=== PATIENT | female | born 1980 ===

== ENCOUNTER 2018-02-20 16:52 | Emergency (ER) | payer SELFPAY ==
[2018-02-20] MEDS ORDERED: Sodium Chloride 0.9% 1,000 ML IV ONE (17:31)
[2018-02-20] MEDS ORDERED: Sodium Chloride 0.9% 1,000 ML ONE (17:45)
[2018-02-20 17:46] LABS: BASO % 0.3 % (0.0-2.0); EOS # 0.1 K/uL (0.0-0.7); EOS % 0.9 % (0.0-4.0); HEMOGLOBIN 12.9 g/dL (11.0-16.0); LYMPH % 17.6 % (20.0-40.0); MEAN CELL VOLUME 86.2 fL (81.0-99.0); MEAN CORPUSCULAR HEMOGLOBIN 28.9 pg (27.0-31.0); MEAN CORPUSCULAR HGB CONC 33.6 g/dL (33.0-37.0); MEAN PLATELET VOLUME 9.2 fL (7.2-11.7); MONO # 0.5 K/uL (0.0-0.8); MONO % 8.7 % (0.0-10.0); NEUT # 4.2 K/uL (1.8-7.0); NEUT % 72.5 % (50.0-75.0); RBC 4.47 Mil/uL (3.80-5.20); RED CELL DISTRIBUTION WIDTH 14.3 % (11.5-14.5); WHITE BLOOD COUNT 5.8 K/uL (4.8-10.8)
[2018-02-20 17:58] LABS: BLOOD UREA NITROGEN 8 mg/dL (7-17); CALCIUM 9.3 mg/dl (8.6-10.4); GFR NON-AFRICAN AMERICAN > 60; LIPASE 104 U/L (23-300)
[2018-02-20 17:59] LABS: ALB/GLOB RATIO 1.2 (1.0-2.1); ALBUMIN 4.3 g/dL (3.5-5.0); ALT/SGPT 17 U/L (9-52); AST/SGOT 37 U/L (14-36)
--- NOTE | 2018-02-20 18:05 | C.PDOC ---
History Of Present Illness 37 year old female presents to the ED complaining of watery diarrhea and lower abdominal cramping for the last three days. Patient reports she ate breakfast at home prior to the pain starting. Notes she feels like her heart is racing. Reports she a fever on the first day, now resolved. Denies any vomiting, dysuria, chest pain, shortness of breath. Admits to sick contacts at home with multiple people with a viral syndrome except diarrhea. Time Seen by Provider: 02/20/18 17:11 Chief Complaint (Nursing): GI Problem History Per: Patient History/Exam Limitations: no limitations Onset/Duration Of Symptoms: Days Current Symptoms Are (Timing): Still Present Location Of Pain/Discomfort: Suprapubic Associated Symptoms: Fever, Diarrhea. denies: Nausea, Vomiting, Urinary Symptoms Past Medical History Reviewed: Historical Data, Nursing Documentation, Vital Signs Vital Signs: Last Vital Signs Temp 98.7 F 02/20/18 17:06 Pulse 115 H 02/20/18 17:06 Resp 18 02/20/18 17:06 BP 103/73 02/20/18 17:06 Pulse Ox 96 02/20/18 17:06 - Medical History PMH: No Chronic Diseases Surgical History: Appendectomy Family History: States: No Known Family Hx - Social History Hx Alcohol Use: No Hx Substance Use: No - Immunization History Hx Tetanus Toxoid Vaccination: No Hx Influenza Vaccination: No Hx Pneumococcal Vaccination: No Review Of Systems Constitutional: Positive for: Fever Cardiovascular: Negative for: Chest Pain Respiratory: Negative for: Shortness of Breath Gastrointestinal: Positive for: Abdominal Pain, Diarrhea. Negative for: Vomiting Genitourinary: Negative for: Dysuria Physical Exam - Physical Exam Appears: Non-toxic Skin: Warm, Dry Head: Normacephalic Eye(s): bilateral: Normal Inspection Neck: Normal ROM Chest: Symmetrical Cardiovascular: Rhythm Regular Respiratory: Normal Breath Sounds, No Rales, No Rhonchi, No Wheezing Gastrointestinal/Abdominal: Soft, Tenderness (mild lower abdominal tenderness), No Guarding, No Rebound Back: No CVA Tenderness Extremity: Normal ROM Neurological/Psych: Oriented x3, Normal Speech Gait: Steady ED Course And Treatment - Laboratory Results Result Diagrams: 02/20/18 17:43 02/20/18 17:43 ECG: Interpreted By Me, Viewed By Me ECG Rhythm: Sinus Tachycardia Interpretation Of ECG: Normal axis. No acute ST/T wave changes Rate From EC O2 Sat by Pulse Oximetry: 96 (RA) Pulse Ox Interpretation: Normal Progress Note: Urine and blood collected and sent to the lab for analysis. Patient treated with IV fluids. Disposition Counseled Patient/Family Regarding: Studies Performed, Diagnosis, Need For Followup, Rx Given - Disposition Referrals: [facility] [Outside] Disposition: HOME/ ROUTINE Disposition Time: 19:55 Condition: STABLE Additional Instructions: FOLLOW UP WITH YOUR DOCTOR/CLINIC IN 1-2 DAYS USE MEDICATION NEEDED DRINK PLENTY OF CLEAR FLUIDS AND ADVANCE TO BLAND DIET SLOWLY RETURN TO ER IF SYMPTOMS WORSEN Prescriptions: Dicyclomine [Bentyl] 20 mg PO Q6 PRN #12 tab PRN Reason: ABDOMINAL CRAMPING Instructions: Diarrhea and Traveler's Diarrhea, Adult (DC) Forms: [employer] (Lao) Print Language: GREENLANDIC - Clinical Impression Clinical Impression: Diarrhea, Abdominal cramps - Scribe Statement The provider has reviewed the documentation as recorded by the Federicoibtristian Ugarte All medical record entries made by the Shreya were at my direction and personally dictated by me. I have reviewed the chart and agree that the record accurately reflects my personal performance of the history, physical exam, medical decision making, and the department course for this patient. I have also personally directed, reviewed, and agree with the discharge instructions and disposition.
[2018-02-20 18:44] LABS: HCG,QUALITATIVE URINE NEGATIVE (NEGATIVE)
[2018-02-20 18:50] LABS: SQUAMOUS EPITHIAL 2 /hpf (0-5); URINE BACTERIA OCC (<OCC); URINE BILIRUBIN NEGATIVE (NEGATIVE); URINE BLOOD 3+ (NEGATIVE); URINE CLARITY Clear (Clear); URINE COLOR Yellow (YELLOW); URINE GLUCOSE (UA) NORMAL (Normal); URINE LEUKOCYTE ESTERASE NEG Leu/uL (Negative); URINE PROTEIN NEGATIVE (NEGATIVE); URINE UROBILINOGEN NORMAL mg/dL (0.2-1.0)
[2018-02-20 20:11] VITALS: BP 99/68; PULSE 85; RESP 18; TEMP 98.6; O2SAT 98
--- NOTE | 2018-02-21 18:37 | CARD ---
APPROVED REPORT Date of service: 02/20/2018 EKG Measurement Heart [id number] <Conclusion> Sinus tachycardia Otherwise normal ECG
== END 2018-02-20 20:11 | disposition home or self-care (01) ==
LOC: C.ER 16:52
DX: R19.7 Diarrhea, unspecified (principal); R10.9 Unspecified abdominal pain
CPT/HCPCS: 80053; 81001; 83690; 84703; 85025; 93005; 96360; 99285; J7030

== ENCOUNTER 2018-03-10 17:21 | Emergency (ER) | payer OTHER ==
[2018-03-10 17:37] VITALS: RESP 18
--- NOTE | 2018-03-10 18:53 | RAD ---
HISTORY: L sided chest pain COMPARISON: None available. TECHNIQUE: Chest PA and lateral FINDINGS: LUNGS: No focal consolidation. Please note that chest x-ray has limited sensitivity for the detection of pulmonary masses. PLEURA: No significant pleural effusion identified. No definite pneumothorax . CARDIOVASCULAR: The cardiomediastinal silhouette appears within normal limits of size. No atherosclerotic calcification present. OSSEOUS STRUCTURES: No acute osseous abnormality identified. VISUALIZED UPPER ABDOMEN: Unremarkable. OTHER FINDINGS: None. IMPRESSION: No acute findings.
--- NOTE | 2018-03-10 19:05 | C.PDOC ---
History Of Present Illness 37 year old female with PMHx of anxiety complains of L rib pain that began months ago and worsened yesterday. Patient states pain starts in the L side of left breast, wraps around under the breast and travels up the chest just left of the sternum. Pain is 5/10 and described as throbbing. Pain worsens with movement and palpation. Treatment with tylenol provided mild improvement of pain. Patient also complains of pain to L deltoid and L upper back, that worsens with using L arm. States she is a lefty and uses her L arm for everything. Patient denies shortness of breath, fever, chills, cough, and recent travel. <Shanna Porter P - Last Filed: 03/10/18 22:06> <Shanna Porter P - Last Filed: 03/10/18 22:06> <Vernon Araiza - Last Filed: 03/10/18 23:41> Time Seen by Provider: 03/10/18 17:59 Chief Complaint (Nursing): Rib Injury Past Medical History Vital Signs: Last Vital Signs Temp 98.0 F 03/10/18 19:06 Pulse 82 03/10/18 19:06 Resp 18 03/10/18 19:06 BP 116/82 03/10/18 19:06 Pulse Ox 100 03/10/18 19:06 - Medical History PMH: Anxiety Other Surgeries: tubal ligation Family History: States: Diabetes - Social History Hx Tobacco Use: No <Shanna oPrter P - Last Filed: 03/10/18 22:06> Vital Signs: Last Vital Signs Temp 98.9 F 03/10/18 17:35 Pulse 104 H 03/10/18 17:35 Resp 18 03/10/18 17:35 BP 110/76 03/10/18 17:35 Pulse Ox 95 03/10/18 17:35 Surgical History: Appendectomy - Social History Hx Alcohol Use: No Hx Substance Use: No - Immunization History Hx Tetanus Toxoid Vaccination: No Hx Influenza Vaccination: No Hx Pneumococcal Vaccination: No <Vernon Araiza - Last Filed: 03/10/18 23:41> Review Of Systems Constitutional: Negative for: Fever, Chills, Sweats Cardiovascular: Positive for: Palpitations (occassional with anxiety) Respiratory: Negative for: Cough, Shortness of Breath, Hemoptysis, SOB with Excertion Gastrointestinal: Negative for: Nausea, Vomiting, Abdominal Pain Musculoskeletal: Positive for: Neck Pain (left), Arm Pain (Left), Other (L rib pain) Neurological: Negative for: Weakness, Dizziness <Shanna Porter P - Last Filed: 03/10/18 22:06> Physical Exam - Physical Exam Appears: Non-toxic, No Acute Distress Skin: Normal Color, Warm, Dry Head: Atraumatic, Normacephalic Eye(s): bilateral: Normal Inspection, PERRL, EOMI Throat: Normal Neck: Normal ROM, No Midline Cervical Tenderness, No Paracervical Tenderness Chest: Tenderness (To Ribs 2-4, 8-10 on the L), Other (palpation of 1cm, round mobile mass overlying rib 8 on the left, likely lipoma) Cardiovascular: Rhythm Irregular, No Edema, No Friction Rub, No Murmur, No JVD Respiratory: Normal Breath Sounds, No Decreased Breath Sounds, No Rales, No Rhonchi, No Wheezing Gastrointestinal/Abdominal: Bowel Sounds, Soft, No Tenderness, No Guarding, No Rebound Back: Other (tenderness and hypertonicity to palpation of L upper trapezius) Extremity: Normal ROM, Tenderness (tenderness to palpation of L deltoid and bicipital groove. +speeds test, + empty can test) Pulses: Left Dorsalis Pedis: Normal, Right Dorsalis Pedis: Normal Neurological/Psych: Oriented x3, Normal Speech, Normal Cranial Nerves (grossly), Normal Motor (grossly) <Shanna Porter P - Last Filed: 03/10/18 22:06> ED Course And Treatment O2 Sat by Pulse Oximetry: 95 <Vernon Araiza T - Last Filed: 03/10/18 23:41> Medical Decision Making Medical Decision Making: CXR: No acute findings. Toradol 60mg IM Patient's pain is reproducible with palpation of L sided ribs, pain likely secondary to costochondritis. <Shanna Porter P - Last Filed: 03/10/18 22:06> Medical Decision Making: Seen and examined with resident. 37 y/o F p/w pain along L sided thorax, reproducible on palpation. CXR no acute findings. <Vernon Araiza T - Last Filed: 03/10/18 23:41> Disposition - Disposition Disposition Time: 20:00 <Shanna Porter P - Last Filed: 03/10/18 22:06> <Vernon Araiza T - Last Filed: 03/10/18 23:41> - Disposition Disposition: HOME/ ROUTINE Condition: STABLE Prescriptions: Ibuprofen [Motrin] 600 mg PO Q6H #16 tab Instructions: Costochondritis Forms: Work Note - Clinical Impression Clinical Impression: Costochondritis
[2018-03-10 19:07] VITALS: BP 116/82; PULSE 82; TEMP 98
[2018-03-10 23:42] VITALS: O2SAT 95
== END 2018-03-10 19:07 | disposition home or self-care (01) ==
LOC: C.ER 17:21
DX: M94.0 Chondrocostal junction syndrome [Tietze] (principal)
CPT/HCPCS: 71046; 96372; 99284; J1885

== ENCOUNTER 2018-08-21 16:20 | Emergency (ER) | payer SELFPAY ==
--- NOTE | 2018-08-21 16:59 | C.PDOC ---
History Of Present Illness 37 years old female presents to ED for complaints of left sided neck, chest, and arm muscle spasms that began 3 days ago. Denies pain on deep aspiration. Patient also reports cough with phlegm since 10 days ago. Denies fever, nausea, shortness of breath, or injuries. Patient also reports vaginal itching during urination. Denies any other physical complaints. Time Seen by Provider: 08/21/18 16:29 Chief Complaint (Nursing): Chest Pain History Per: Patient History/Exam Limitations: no limitations Onset/Duration Of Symptoms: Hrs Current Symptoms Are (Timing): Still Present Modifying Factors: None Exacerbating Factors: None Alleviating Factors: None Recent travel outside of the [place]: No Past Medical History Reviewed: Historical Data, Nursing Documentation, Vital Signs Vital Signs: Last Vital Signs Temp 98.5 F 08/21/18 16:23 Pulse 88 08/21/18 16:23 Resp 20 08/21/18 16:23 BP 119/84 08/21/18 16:23 Pulse Ox 99 08/21/18 16:23 - Medical History PMH: Anxiety Surgical History: Appendectomy Family History: States: Diabetes - Social History Hx Tobacco Use: No Hx Alcohol Use: Yes Hx Substance Use: No - Immunization History Hx Tetanus Toxoid Vaccination: No Hx Influenza Vaccination: No Hx Pneumococcal Vaccination: No Review Of Systems Except As Marked, All Systems Reviewed And Found Negative. Constitutional: Negative for: Fever, Chills Respiratory: Positive for: Cough (with phlegm ). Negative for: Shortness of Breath Gastrointestinal: Negative for: Nausea, Vomiting, Diarrhea Genitourinary: Positive for: Other (Vaginal itching during urination ). Negative for: Hematuria Musculoskeletal: Positive for: Other (Muscle spasms to left sided chest, neck and arm ) Skin: Negative for: Rash Neurological: Negative for: Weakness, Numbness Physical Exam - Physical Exam Appears: Non-toxic, No Acute Distress Skin: Normal Color, Warm, Dry, No Rash Head: Atraumatic, Normacephalic Eye(s): bilateral: Normal Inspection, PERRL, EOMI Oral Mucosa: Moist Neck: Normal ROM, Supple, Other (Muscle spasm to posterior neck area) Chest: Symmetrical, Other (Muscle spasm to posterior chest area ) Cardiovascular: Rhythm Regular, No Murmur Respiratory: Normal Breath Sounds, No Rales, No Rhonchi, No Wheezing Gastrointestinal/Abdominal: Soft, No Tenderness Back: Normal Inspection, No CVA Tenderness Extremity: Normal ROM, Other (Muscle spasm to posterior left arm area) Extremity: Bilateral: Atraumatic, Normal Color And Temperature, Normal ROM Pulses: Left Radial: Normal, Right Radial: Normal Neurological/Psych: Oriented x3, Normal Speech Gait: Steady ED Course And Treatment O2 Sat by Pulse Oximetry: 99 (RA) Pulse Ox Interpretation: Normal Medical Decision Making Medical Decision Making: Plan: * Motrin * Tylenol * Valium * Urinalysis Disposition Counseled Patient/Family Regarding: Diagnosis, Need For Followup - Disposition Disposition: HOME/ ROUTINE Disposition Time: 17:30 Condition: STABLE Additional Instructions: Take medication as indicated. Don't drive or work while taking Valium. Follow up with your doctor. Use warm showers, epson salt baths, linament like, bengay, tiger balm, ice hot. Prescriptions: diaZEpam [Valium] 5 mg PO TID #15 tab Ibuprofen [Motrin] 600 mg PO TID #15 tab Forms: [employer] (Hebrew), General Discharge Instructions - POA Present On Arrival: None - Clinical Impression Clinical Impression: Muscle spasm - Scribe Statement The provider has reviewed the documentation as recorded by the Scribe Ynes Griffin All medical record entries made by the Scribe were at my direction and personally dictated by me. I have reviewed the chart and agree that the record accurately reflects my personal performance of the history, physical exam, medical decision making, and the department course for this patient. I have also personally directed, reviewed, and agree with the discharge instructions and disposition.
[2018-08-21 17:04] LABS: SQUAMOUS EPITHIAL 5 /hpf (0-5); URINE BILIRUBIN NEGATIVE (NEGATIVE); URINE BLOOD NEGATIVE (NEGATIVE); URINE CLARITY Hazy (Clear); URINE COLOR Yellow (YELLOW); URINE GLUCOSE (UA) NORMAL (Normal); URINE LEUKOCYTE ESTERASE NEG Leu/uL (Negative); URINE PROTEIN NEGATIVE (NEGATIVE)
[2018-08-21 17:42] VITALS: BP 97/66; PULSE 81; RESP 17; TEMP 98.6; O2SAT 100
--- NOTE | 2018-08-22 18:21 | CARD ---
APPROVED REPORT Date of service: 08/21/2018 EKG Measurement Heart [id number] <Conclusion> Normal sinus rhythm Normal ECG
== END 2018-08-21 17:44 | disposition home or self-care (01) ==
LOC: C.ER 16:20
DX: M62.838 Other muscle spasm (principal); F41.9 Anxiety disorder, unspecified